=== PATIENT | male | born 1975 | race Caucasian/White ===

== ENCOUNTER 2018-04-09 12:05 | Emergency (ER) | payer SELFPAY ==
[~2018-04-09 12:05] MED LIST: Lactated Ringer's 1,000 ML BAG ONE; Sodium Chloride 0.9% 1,000 ML BAG ONE
[2018-04-09] MEDS ORDERED: Promethazine HCl 25 MG/ML VIAL ONE (12:26)
[2018-04-09 12:38] LABS: #Basophils 0.1 thou/uL (0.0-0.2); #Eosinphils 0.1 thou/uL (0.0-0.7); #Lymphocytes 0.8 thou/uL (1.20-3.40); #Monocytes 0.8 thou/uL (0.11-0.59); #Neutrophils 17.5 thou/uL (1.40-6.50); %Basophils 0.4 % (0.0-1.0); %Eosinophils 0.5 % (0.0-10.0); %Lymphocytes 4.2 % (21.0-51.0); %Monocytes 4.3 % (0.0-10.0); %Neutrophils 90.7 % (42.0-75.0); Hemoglobin 16.7 g/dL (14.0-18.0); Mean Corpuscular HGB CONC 34.4 g/dL (32.0-36.0); Mean Corpuscular Volume 87.3 fL (78.0-98.0); Mean Platelet Volume 6.4 fL (7.4-10.4); Platelet Count 283 thou/uL (130-400); Red Blood Cell (RBC) Count 5.57 mill/uL (4.70-6.10); White Blood Cell (WBC) Count 19.3 thou/uL (4.8-10.8)
[2018-04-09] MEDS ORDERED: Loperamide HCl 2 MG CAP ONE (12:44)
[2018-04-09 12:50] LABS: Anion Gap 14 mmol/L (10-20); BUN (Urea Nitrogen) 21 mg/dL (8.9-20.6); Calc. Creatinine Clearance 0 mL/min (70-130); Calcium 9.4 mg/dL (7.8-10.44); Carbon Dioxide 20 mmol/L (22-29); Chloride 110 mmol/L (98-107); Estimated GFR-MDRD 82; Glucose 115 mg/dL (70-105); Potassium 4.3 mmol/L (3.5-5.1); Sodium 140 mmol/L (136-145)
== END 2018-04-09 14:45 | disposition home or self-care (01) ==
LOC: MADERS 12:05
DX: A08.4 Viral intestinal infection, unspecified (principal); I10 Essential (primary) hypertension; Z79.899 Other long term (current) drug therapy
CPT/HCPCS: 36415; 80048; 85025; 96361; 96374; J2550; J7050; J7120